=== PATIENT | female | born 1970 | race Caucasian/White ===

== ENCOUNTER 2019-12-23 14:30 | Outpatient (REF) | payer OTHER, SELFPAY ==
[2019-12-23 14:58] LABS: MANUAL DIFF FLAG NO
[2019-12-23 15:02] LABS: Basophils Absolute Auto 0.1 X10*3/uL (0.0-0.2); Basophils Percent Auto 0.7 % (0-2); Eosinophils Absolute Auto 0.1 X10*3/uL (0.0-0.4); Eosinophils Percent Auto 1.2 % (0-4); Hematocrit 45.4 % (37-47); Hemoglobin 15.3 g/dl (12.0-16.0); Imm Gran Abs Auto 0.02 X10*3/uL (0.00-0.03); Imm Gran Pct Auto 0.2 % (0.0-0.4); Lymphocytes Absolute Auto 2.6 X10*3/uL (1.2-4.9); Lymphocytes Percent Auto 30.7 % (20-40); Mean Corpuscular HGB Conc 33.7 g/dl (31.0-35.0); Mean Corpuscular Volume 91.9 fL (80-98); Mean Platelet Volume 10.8 fL (9.4-12.3); Monocytes Absolute Auto 0.5 X10*3/uL (0.1-1.2); Monocytes Percent Auto 6.1 % (2-11); Neutrophils Absolute Auto 5.2 X10*3/uL (2.0-8.3); Neutrophils Percent Auto 61.1 % (45-73); Platelet Count 200 X10*3/uL (160-400); Red Blood Count 4.94 X10*6/uL (4.20-5.50); Red Cell Distribution Width 13.7 % (11.0-16.0); White Blood Count 8.6 X10*3/uL (4.8-10.8)
[2019-12-23 15:28] LABS: Alanine Aminotransferase 17 U/L (0-31); Albumin Level 4.1 g/dL (3.5-5.0); Alkaline Phosphatase 68 U/L (39-117); Anion Gap 12 (12-20); Aspartate Amino Transferase 15 U/L (5-31); Bilirubin Total 0.3 mg/dL (0.0-1.0); Blood Urea Nitrogen 12 mg/dL (9-16); Calcium 8.9 mg/dL (8.4-10.2); Carbon Dioxide 25 mmol/L (22-29); Chloride 104 mmol/L (96-108); Estimated Glomerular Filt Rate > 60; Glucose Random 93 mg/dL (60-115); Potassium 4.4 mmol/l (3.3-5.1); Sodium 137 mmol/L (135-145); Total Protein 6.7 g/dL (6.5-8.0)
[2019-12-23 15:50] LABS: Free T4 (Free Thyroxine) 0.88 ng/dL (0.71-1.85); Thyroid Stimulating Hormone 0.65 uIU/mL (0.32-4.0); Vitamin D 25-OH Total 25.1 ng/mL (>30)
[2019-12-23 16:00] LABS: Folate 12.4 ng/mL (> or = 4.0); Vitamin B12 476 pg/mL (200-900)
--- NOTE | 2019-12-23 16:04 | HO.PHPPROGNO ---
Subjective Subjective Date of Service: 12/23/19 Reason For Visit: F33.2 Interim History: I started Wellbutrin. Reports she initiated Wellbutrin [address] Hoff,. She has returned to Abilify 5 mg daily for over a week now and is coping with identity theft via unemployment and a disability provider change to [employer] with required paperwork which we will initiate. Reports some improvement. Medication Compliance: Yes Side effects from medications: No Attending Groups: Yes Review of Systems Psychiatric: Reports anxiety, Reports depression, Reports difficulty concentrating, Reports hopelessness and Reports anhedonia Mental Status Exam Mental Status Exam Patient Orientation: Person, Place, Time and Situation Level of Consciousness: Awake, Appropriate and Alert Patient Behavior: Cooperative, Passive, Anxious and Fatigued Mood Description: Withdrawn, Depressed, Anxious and Apprehensive Affect Description: Flat Patient Cognition Impaired: No Ability to Follow Directions: Excellent Speech Pattern: Clear, Appropriate, Spontaneous Speech and Soft-Spoken Memory Description: Intact Hallucinations: None Delusions: Not Present Thought Process: Intact, Distracted and Rumination Thought Content: positive for Intact, positive for [place], positive for Circumstantial and positive for Suicidal Ideation (passive at times) Depressive Symptoms: Increased Anxiety, Loss of Int. in Activity, Hopelessness, Unhappiness, Low Self Esteem and Loss of Energy Judgement: Good Diagnostics Labs Results: 12/23/19 14:43 12/23/19 14:43 Labs: Laboratory Results - last 48 hr 12/23/19 12/23/19 12/23/19 14:43 14:43 14:43 WBC 8.6 RBC 4.94 Hgb 15.3 Hct 45.4 MCV 91.9 MCH 31.0 MCHC 33.7 RDW 13.7 Plt Count 200 MPV 10.8 Immature Gran % (Auto) 0.2 Neut % (Auto) 61.1 Lymph % (Auto) 30.7 Steele % (Auto) 6.1 Eos % (Auto) 1.2 Baso % (Auto) 0.7 Lymph # (Auto) 2.6 Steele # (Auto) 0.5 Eos # (Auto) 0.1 Baso # (Auto) 0.1 Abs Immat Gran (auto) 0.02 Absolute Neuts (auto) 5.2 Absolute Nucleated RBC 0.000 Nucleated RBC % (auto) 0.0 Sodium 137 Potassium 4.4 Chloride 104 Carbon Dioxide 25 Anion Gap 12 BUN 12 Creatinine 0.82 Estim Creat Clear Calc Not Reportable Estimated GFR > 60 Random Glucose 93 Calcium 8.9 Total Bilirubin 0.3 AST 15 ALT 17 Alkaline Phosphatase 68 Total Protein 6.7 Albumin 4.1 Vitamin B12 476 25-OH Vitamin D Total 25.1 Folate 12.4 TSH 0.65 Free T4 0.88 Assessment & Plan Patient educated on: medication risk/benefits and therapeutic strategies Guardian/Caregiver educated on: other ([facility] paperwork completed.) Informed Consent: understands and further education needed Reason for contiued partial hosp. stay Substantial Risk for: harm to self, inability to function and rapid decompensation Certification I certify that partial hospital treatment is medically necessary due to the symptoms and problems resulting from the patient's mental illness and the failure to treat the patient at the partial hospital level of care would likely result in the patient requiring inpatient psychiatric care which could not be prevented at a less intensive level of care. Greater than 50% of the session was spent on counseling and/or coordination of care Discharge Plan Discharge Primary Care Provider: Mason Watkins Patient Disposition: Home, Self-Care Discharge Date/Time: 12/23/19 14:31 Discharge Medications: No Action clonazepam 0.5 mg Tablet 0.5 mg PO BID PRN (Reason: Anxiety) RF: 0 duloxetine 60 mg Capsule,Delayed Release(Dr/Ec) 120 mg PO BEDTIME RF: 0 albuterol sulfate [ProAir HFA] 90 mcg/actuation Hfa Aerosol Inhaler 2 puff INHALATION Q4H PRN (Reason: Shortness Of Breath) RF: 0 aripiprazole 5 mg Tablet 5 mg PO BEDTIME Qty: 30 RF: 0
== END 2019-12-23 14:31 | disposition home or self-care (01) ==
LOC: HO.LAB 14:30
PROVIDERS: PCP Family Medicine; Visit Provider Clinical Nurse Specialist Psychiatric/Mental Health, Adult
DX: F33.2 Major depressive disorder, recurrent severe without psychotic features (principal)
CPT/HCPCS: 36415; 80050; 80053; 82306; 82607; 82746; 84439; 84443; 85025; 99213

== ENCOUNTER 2019-12-31 10:15 | Outpatient (RCR) | payer OTHER, SELFPAY ==
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
--- NOTE | 2019-12-10 13:22 | PC.NURSE ---
Patient is a 49 year old female who self referred to PHP d/t increasing depression with passive SI, increased anxiety, and grief from recent passing of her aunt. Pt feeling overwhelmed with the pandemic and is unable to work d/t symptoms. Pt works at [employer]. Regarding work patient stated, I just can't do it . Feeling hopeless and helpless. Stated she is attending the program as she has, uncontrollable depression . Patient is alert and oriented x4. Calm and cooperative. Soft spoken. Presents with depressed mood. Denied SI at present. Pt has the crisis number if needed. Gave verbal permission to email her a copy of her safety plan. Will email when [facility] email is reactivated. Patient reports picking scabs and is unable to stop. Reports she has 2 scabs on arm and 1 scab on neck. Stated they are painful. Does not think they are infected however pt does have a doctors appointment in Feb 2019 and would like staff's help to get an appointment sooner to f/u. Pt reports her gait has been off as she feels, woozy at times d/t anxiety and panic. Encouraged pt to increase her fluid intake. Pt denied substance use with the exception of occasional drink last time a few months ago. Pt's medications reconciled with patients pharmacy. Pt reports she is taking as prescribed. Pt reports she is on Amitriptyline however pharmacist stated pt last picked this up in August for one month supply ordered by Nalini. Pt stated she only fills her prescriptions at the [facility] I called. Pt also filled, Per pharmacist, Aripiprazole 2 mg daily on 12/01/19 at 1615 however patient does not recall picking this up and is not taking this. According to patient and pharmacist she did waste picker Aripiprazole 5 mg Daily on 09/17/19 for a 3 month supply which pt reports she is taking currently at . Yumiko Elizondo APRN is aware. In addition, pt reports drinking 3 pots of coffee daily. Pt thinks this could be contributing to panic attacks and when she has sleep issues at times. Pt stated her would like her to cut down as well. Patient is aware that she should not stop intake all at once d/t caffeine withdrawal and should reduce slowly. Will email patient information/tips on how to reduce caffeine intake. Completed assessment via telephone d/t telehealth program platform.
[2019-12-10 13:59] VITALS: BMI 24.0
--- NOTE | 2019-12-13 14:29 | PC.NURSE ---
Case opened in treatment team
--- NOTE | 2019-12-15 14:41 | P.PNPSP_ITS ---
Subjective Subjective Date of Service: 12/15/19 Reason For Visit: Depression Interim History: Today is a bad day. I don't feel well. Pt reports headache for the past 4-5 days, today with nausea. Denies fever but will assess. Denies other family members are ill. Last week, with the assistance of Dorota Donovan RN, pt learned that she had not been taking the accurate dose of Abilify prescribed, 5 mg, but was given 2 mg by the pharmacy. She has adjusted her meds today and has initiated the 5 mg dosing. We will allow this dosing to establish before increasing as we planned upon admission. Pt reports sleep interruption also, with improvement from last week when she had XENA 1-2 am. Currently sleeping ~4 hours per night, TOBY ~4:30a.m. believes this is due to anxiety. Medication Compliance: Yes (re-introducing Abilify 5 mg from 2 mg by error) Side effects from medications: No (?JACINTO) Attending Groups: Yes Review of Systems Constitutional: Reports difficulty sleeping, Reports headache(s) and Reports other (nausea today) Reports headache(s) Reports headache(s) Mental Status Exam Mental Status Exam Patient Orientation: Person, Place, Time and Situation Level of Consciousness: Awake, Appropriate and Sedated Patient Behavior: Appropriate and Cooperative Mood Description: Withdrawn, Depressed, Anxious and Flat Affect Description: Flat Patient Cognition Impaired: No Ability to Follow Directions: Excellent Speech Pattern: Clear, Impoverished, Appropriate, Spontaneous Speech and Soft- Spoken Memory Description: Intact Hallucinations: None Delusions: Not Present Thought Process: Intact Thought Content: positive for Perseveration Depressive Symptoms: Increased Anxiety, Insomnia, Difficulty Sleeping, Loss of Int. in Activity, Hopelessness, Unhappiness and Loss of Energy Judgement: Good Diagnostics Vital Signs (24Hr): Body Mass Index 24.0 Assessment & Plan Patient educated on: medication risk/benefits, therapeutic strategies and medical condition Informed Consent: understands and further education needed Reason for contiued partial hosp. stay Substantial Risk for: harm to self, inability to function and rapid decompensation Certification I certify that partial hospital treatment is medically necessary due to the symptoms and problems resulting from the patient's mental illness and the failure to treat the patient at the partial hospital level of care would likely result in the patient requiring inpatient psychiatric care which could not be prevented at a less intensive level of care. Greater than 50% of the session was spent on counseling and/or coordination of care Discharge Plan Discharge Attending provider: Vidal Carmichael Additional Instructions: Continue current regime. Will contact pt on 12/15 to re-eval sleep, headache, medical sx. ? In need of titration of Abilify to assist in symptom mgt. Medications: Continued aripiprazole 5 mg Tablet 5 mg PO BEDTIME Qty: 30 RF: 0 No Action clonazepam 0.5 mg Tablet 0.5 mg PO BID PRN (Reason: Anxiety) RF: 0 duloxetine 60 mg Capsule,Delayed Release(Dr/Ec) 120 mg PO BEDTIME RF: 0 albuterol sulfate [ProAir HFA] 90 mcg/actuation Hfa Aerosol Inhaler 2 puff INHALATION Q4H PRN (Reason: Shortness Of Breath) RF: 0
--- NOTE | 2019-12-31 15:00 | P.PNPSP_ITS ---
Subjective Subjective Date of Service: 12/31/19 Reason For Visit: Depression Interim History: Ale reports she wants to return to work on 01/09/30. She is unsure if she is ready but wants to try to complete this. She plans discharge from [facility] today, will meet with Dr. Francisco Javier Salas on 01/05/20 for review. Wellbutrin she initiated in OP has been helpful thus far she reports Medication Compliance: Yes Side effects from medications: No Attending Groups: Yes Review of Systems Review of Systems Yes all other systems are reviewed and are negative Constitutional: Reports headache(s) Reports headache(s) Reports headache(s) Psychiatric: Reports anxiety and Reports depression Mental Status Exam Mental Status Exam Patient Orientation: Person, Place, Time and Situation Level of Consciousness: Awake, Appropriate and Alert Patient Behavior: Appropriate and Passive Mood Description: Depressed Affect Description: Flat Patient Cognition Impaired: No Ability to Follow Directions: Excellent Speech Pattern: Clear, Appropriate and Soft-Spoken Memory Description: Intact Hallucinations: None Delusions: Not Present Thought Process: Intact Thought Content: positive for Intact Depressive Symptoms: Hopelessness and Unhappiness Judgement: Good Diagnostics Vital Signs (24Hr): Body Mass Index 24.0 Assessment & Plan Patient educated on: therapeutic strategies Informed Consent: understands Reason for contiued partial hosp. stay Substantial Risk for: stable for discharge Certification I certify that partial hospital treatment is medically necessary due to the symptoms and problems resulting from the patient's mental illness and the failure to treat the patient at the partial hospital level of care would likely result in the patient requiring inpatient psychiatric care which could not be prevented at a less intensive level of care. Greater than 50% of the session was spent on counseling and/or coordination of care Discharge Plan Discharge Attending provider: Vidal Carmichael Additional Instructions: Continue current regime. 12/31/19: Continue current regime. Follow up appt with Dr. Francisco Javier Salas on 01/05/20. Medications: Continued aripiprazole 5 mg Tablet 5 mg PO BEDTIME Qty: 30 RF: 0 No Action clonazepam 0.5 mg Tablet 0.5 mg PO BID PRN (Reason: Anxiety) RF: 0 duloxetine 60 mg Capsule,Delayed Release(Dr/Ec) 120 mg PO BEDTIME RF: 0 albuterol sulfate [ProAir HFA] 90 mcg/actuation Hfa Aerosol Inhaler 2 puff INHALATION Q4H PRN (Reason: Shortness Of Breath) RF: 0 Wellbutrin XL 150 mg 150 mg PO DAILY RF: 0
== END 2019-12-31 23:55 | disposition home or self-care (01) ==
LOC: HO.PHPA 10:15
PROVIDERS: Visit Provider Psychiatry & Neurology Psychiatry
DX: F33.2 Major depressive disorder, recurrent severe without psychotic features (principal); F43.10 Post-traumatic stress disorder, unspecified; Z79.899 Other long term (current) drug therapy
CPT/HCPCS: 90792; 90853; 99213

== ENCOUNTER 2020-01-19 17:00 | Outpatient (RCR) | payer OTHER, SELFPAY | END 2020-01-20 23:55 | disposition home or self-care (01) | LOC: HO.PAOS 17:00 | PROVIDERS: Visit Provider Counselor Mental Health | DX: F43.10 Post-traumatic stress disorder, unspecified (principal); F40.00 Agoraphobia, unspecified; F33.2 Major depressive disorder, recurrent severe without psychotic features | CPT/HCPCS: 90834 ==

== ENCOUNTER 2020-06-02 08:15 | Outpatient (RCR) | payer OTHER, SELFPAY ==
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
[2020-05-09 13:47] VITALS: BMI 27.8
--- NOTE | 2020-05-10 08:41 | PC.ADMIT ---
Patient referred to PHP program d/t increase in depression with passive SI, increase in anxiety, and increase in PTSD sxs. Patient is unable to work d/t symptoms and has taken a GIA from work as a result. Patient has completed the PHP in the past and has found it helpful. Patient presents with depressed mood and anxious affect. Denied current SI. Reports having passive SI thinking what is the purpose of being here. Reports her children are her protective factor. Patient gave verbal permission to email her a copy of her safety plan. Medications reconciled with patient and patient's pharmacy. Patient reports taking medications as prescribed. Patient reports experiencing dizziness when having a panic attack. Educated patient on hyperventilation and calm breathing to reduce that side effect. Will email patient a copy of instructions on calm breathing to reinforce education.
--- NOTE | 2020-05-12 09:37 | PC.NURSE ---
Patient reports she accidentally took her bedtime medications this morning and just realized this. She stated she uses a pill organizer but somehow took the night time does this morning. She stated she has never done this before. Reports taking Abilify 10 mg, Klonopin 0.5 mg, and Duloxetine 120 mg. Stated she is feeling a little tired, anxious, and has a headache. Patient aware not to take these medications again tonight. Recommended that she not to drive or do anything that requires her to be alert. Patient is holding morning Wellbutrin dose. Reviewed aforementioned information with Dr Palma. No new orders. Dr Palma is scheduled to see patient at 12:30 today. Patient is aware.
--- NOTE | 2020-05-12 12:44 | P.PNPSP_ITS ---
Subjective Subjective Date of Service: 05/12/20 Reason For Visit: depression Interim History: PATIENT NO SHOWED TO THE VIDEO CONFERENCE Diagnostics Vital Signs (24Hr): Body Mass Index 27.8 Assessment & Plan Assessment & Plan (1) Major depressive disorder, recurrent episode with melancholic features: Status: Acute Code(s): F33.9 - Major depressive disorder, recurrent, unspecified Assessment and Plan: PATIENT NO SHOWED TO THE VIDEO CONFERENCE Certification I certify that partial hospital treatment is medically necessary due to the symptoms and problems resulting from the patient's mental illness and the destini lure to treat the patient at the partial hospital level of care would likely result in the patient requiring inpatient psychiatric care which could not be prevented at a less intensive level of care. Greater than 50% of the session was spent on counseling and/or coordination of care Discharge Plan Discharge Attending provider: Vidal Carmichael Medications: New bupropion HCl [Wellbutrin XL] 300 mg tablet extended release 24 hr 300 mg PO QAM Qty: 30 RF: 0 Discontinued Wellbutrin XL 150 mg 150 mg PO DAILY RF: 0 No Action duloxetine 60 mg Capsule,Delayed Release(Dr/Ec) 120 mg PO BEDTIME RF: 0 albuterol sulfate [ProAir HFA] 90 mcg/actuation Hfa Aerosol Inhaler 2 puff INHALATION Q4H PRN (Reason: Shortness Of Breath) RF: 0 clonazepam [Klonopin] 0.5 mg Tablet 0.5 mg PO TID PRN (Reason: Anxiety) RF: 0 aripiprazole 10 mg Tablet 10 mg PO BEDTIME RF: 0
--- NOTE | 2020-05-12 14:13 | HO.PHPPROGNO ---
Subjective Subjective Date of Service: 05/12/20 Reason For Visit: depression Interim History: The patient called and reported that she took by mistake her HS meds today AM and she was oversedated. We talk over the phone and explained her that she could be a little sedated but she can restart her medications as usual, starting today. Medication Compliance: Yes (see HPI) Review of Systems Review of Systems Yes all other systems are reviewed and are negative Mental Status Exam Mental Status Exam Patient Appearance: Well Grooomed Patient Orientation: Person, Place and Time Level of Consciousness: Sedated Patient Behavior: Appropriate Mood Description: Calm Affect Description: Calm Patient Cognition Impaired: No Ability to Follow Directions: Good Speech Pattern: Clear Memory Description: Intact Hallucinations: None Delusions: Not Present Thought Content: positive for Intact Judgement: Fair Diagnostics Vital Signs (24Hr): Body Mass Index 27.8 Assessment & Plan Assessment & Plan (1) Major depressive disorder, recurrent episode with melancholic features: Status: Acute Code(s): F33.9 - Major depressive disorder, recurrent, unspecified Assessment and Plan: Keep same treatment Certification I certify that partial hospital treatment is medically necessary due to the symptoms and problems resulting from the patient's mental illness and the failure to treat the patient at the partial hospital level of care would likely result in the patient requiring inpatient psychiatric care which could not be prevented at a less intensive level of care. Greater than 50% of the session was spent on counseling and/or coordination of care Discharge Plan Discharge Attending provider: Vidal Carmichael Medications: New bupropion HCl [Wellbutrin XL] 300 mg tablet extended release 24 hr 300 mg PO QAM Qty: 30 RF: 0 Discontinued Wellbutrin XL 150 mg 150 mg PO DAILY RF: 0 No Action duloxetine 60 mg Capsule,Delayed Release(Dr/Ec) 120 mg PO BEDTIME RF: 0 albuterol sulfate [ProAir HFA] 90 mcg/actuation Hfa Aerosol Inhaler 2 puff INHALATION Q4H PRN (Reason: Shortness Of Breath) RF: 0 clonazepam [Klonopin] 0.5 mg Tablet 0.5 mg PO TID PRN (Reason: Anxiety) RF: 0 aripiprazole 10 mg Tablet 10 mg PO BEDTIME RF: 0 Telehealth Telehealth Location of provider rendering services: practice address Location of patient: address on file Patient Identification confirmed using: Name, : Yes Telehealth method: voice only Patient verbally consented to treatment: Yes Patient verbally consented to billing insurance company: Yes Patient informed of any privacy concerns related to visit: Yes Time spent with patient (mins): 15
--- NOTE | 2020-05-15 14:18 | HO.PHPPROGNO ---
Subjective Subjective Date of Service: 05/15/20 Reason For Visit: depression Interim History: The patient reported that she is still tired, she slept only 6 hours last night. She reported some improvement of dysphoria since Abilify was titreated up to 10 mg but still some symptoms Medication Compliance: Yes Side effects from medications: No Attending Groups: Yes Review of Systems Review of Systems Yes all other systems are reviewed and are negative Mental Status Exam Mental Status Exam Patient Appearance: Well Grooomed and Appropriate Patient Orientation: Person, Place, Time and Situation Level of Consciousness: Awake and Appropriate Patient Behavior: Appropriate and Cooperative Mood Description: Calm and Withdrawn Affect Description: Constricted Patient Cognition Impaired: No Ability to Follow Directions: Good Speech Pattern: Clear Memory Description: Intact Hallucinations: None Delusions: Not Present Thought Process: Intact and Goal Oriented Thought Content: positive for Intact Depressive Symptoms: Insomnia Judgement: Fair Diagnostics Vital Signs (24Hr): Body Mass Index 27.8 Assessment & Plan Assessment & Plan (1) Post traumatic stress disorder: Status: Acute Code(s): F43.10 - Post-traumatic stress disorder, unspecified Assessment and Plan: Keep same treatment (2) Major depressive disorder, recurrent episode with melancholic features: Status: Acute Code(s): F33.9 - Major depressive disorder, recurrent, unspecified Assessment and Plan: Keep same tratment, next step would be to increase Abilify up to 15 mg as a mood stabilizer Certification I certify that partial hospital treatment is medically necessary due to the symptoms and problems resulting from the patient's mental illness and the failure to treat the patient at the partial hospital level of care would likely result in the patient requiring inpatient psychiatric care which could not be prevented at a less intensive level of care. Greater than 50% of the session was spent on counseling and/or coordination of care Discharge Plan Discharge Attending provider: Vidal Carmichael Medications: New bupropion HCl [Wellbutrin XL] 300 mg tablet extended release 24 hr 300 mg PO QAM Qty: 30 RF: 0 Discontinued Wellbutrin XL 150 mg 150 mg PO DAILY RF: 0 No Action duloxetine 60 mg Capsule,Delayed Release(Dr/Ec) 120 mg PO BEDTIME RF: 0 albuterol sulfate [ProAir HFA] 90 mcg/actuation Hfa Aerosol Inhaler 2 puff INHALATION Q4H PRN (Reason: Shortness Of Breath) RF: 0 clonazepam [Klonopin] 0.5 mg Tablet 0.5 mg PO TID PRN (Reason: Anxiety) RF: 0 aripiprazole 10 mg Tablet 10 mg PO BEDTIME RF: 0 Telehealth Telehealth Location of provider rendering services: practice address Location of patient: address on file Patient Identification confirmed using: Name, : Yes Telehealth method: video Patient verbally consented to treatment: Yes Patient verbally consented to billing insurance company: Yes Patient informed of any privacy concerns related to visit: Yes Time spent with patient (mins): 15
--- NOTE | 2020-05-15 15:35 | PC.NURSE ---
I called and left a message for pt. I asked her to pls call back re: how treatment is going, schedule, and aftercare plans.
--- NOTE | 2020-05-17 13:54 | PC.NURSE ---
I received a message back from pt and called her. I left another message asking to call talk about schedule and treatment, etc.
--- NOTE | 2020-05-17 14:45 | PC.NURSE ---
I called and spoke to pt. She reports she is doing well in the program despite severe PTSD symptoms, and shared that she was able to use a coping skill last night to pull her out of a flashback. We discussed aftercare. Pt is returning to work after PHP. She is considering a weekly DBT group, but it would have to fall outside her work hours (8-4:30 daily), as she says they are not flexible. Her tentative discharge date is Friday.
--- NOTE | 2020-05-19 15:09 | PC.NURSE ---
I sent Maci Peraza at [facility] (pt's therapist) an email updating her about pt's progress in PHP and discharge date.
--- NOTE | 2020-05-23 13:04 | HO.PHPPROGNO ---
Subjective Subjective Date of Service: 05/23/20 Reason For Visit: depression Interim History: The patient is still depressed but better since before. We discussed options since it is 2 weeks since we increased Wellbutrin. She reported that she had some headaches since we increased Wellbutrin 2 weeks ago. She agreed to start using Elavil as an antidepressant instead of medication for chronic pain. Medication Compliance: Yes Side effects from medications: Yes (mild headache with Wellbutrin XL 300 mg) Attending Groups: Yes Review of Systems Review of Systems Yes all other systems are reviewed and are negative Mental Status Exam Mental Status Exam Patient Appearance: Well Grooomed Patient Orientation: Person, Place, Time and Situation Level of Consciousness: Awake and Appropriate Patient Behavior: Appropriate Mood Description: Calm Affect Description: Constricted Patient Cognition Impaired: No Ability to Follow Directions: Good Speech Pattern: Clear Memory Description: Intact Hallucinations: None Delusions: Not Present Thought Process: Goal Oriented Thought Content: positive for Intact Depressive Symptoms: Insomnia and Crying Spells Judgement: Fair Diagnostics Vital Signs (24Hr): Body Mass Index 27.8 Assessment & Plan Assessment & Plan (1) Major depressive disorder, recurrent episode with melancholic features: Status: Acute Code(s): F33.9 - Major depressive disorder, recurrent, unspecified Assessment and Plan: The patient had improved slightly on her depression but she still has residual symptoms. She had some side effects with the increase of Wellbutrin so she agreed to increase Elavil up to 50 mg po qhs to target depression. Plan: 1. Increase Elavil up to 50 mg po qhs. 2. Rest the same. 3. Next visit Elavil levels. Certification I certify that partial hospital treatment is medically necessary due to the symptoms and problems resulting from the patient's mental illness and the failure to treat the patient at the partial hospital level of care would likely result in the patient requiring inpatient psychiatric care which could not be prevented at a less intensive level of care. Greater than 50% of the session was spent on counseling and/or coordination of care Discharge Plan Discharge Attending provider: Vidal Carmicahel Medications: New bupropion HCl [Wellbutrin XL] 300 mg tablet extended release 24 hr 300 mg PO QAM Qty: 30 RF: 0 amitriptyline 50 mg tablet 50 mg PO BEDTIME Qty: 14 RF: 0 Discontinued Wellbutrin XL 150 mg 150 mg PO DAILY RF: 0 amitriptyline 25 mg Tablet 25 mg PO BEDTIME RF: 0 No Action duloxetine 60 mg Capsule,Delayed Release(Dr/Ec) 120 mg PO BEDTIME RF: 0 albuterol sulfate [ProAir HFA] 90 mcg/actuation Hfa Aerosol Inhaler 2 puff INHALATION Q4H PRN (Reason: Shortness Of Breath) RF: 0 clonazepam [Klonopin] 0.5 mg Tablet 0.5 mg PO TID PRN (Reason: Anxiety) RF: 0 aripiprazole 10 mg Tablet 10 mg PO BEDTIME RF: 0 Telehealth Telehealth Location of provider rendering services: practice address Location of patient: address on file Patient Identification confirmed using: Name, : No Telehealth method: video Patient verbally consented to treatment: Yes Patient verbally consented to billing insurance company: Yes Patient informed of any privacy concerns related to visit: No Time spent with patient (mins): 15
--- NOTE | 2020-06-02 09:24 | PC.NURSE ---
Went over patient's medication list. Medication education provided. Patient appears to understand her medications and is taking as prescribed.
--- NOTE | 2020-06-02 13:59 | P.PNPSP_ITS ---
Subjective Subjective Date of Service: 06/02/20 Reason For Visit: depression Interim History: The patient reported mild improvement of her mood with the last medication change. So far, she has some residual symptoms and she requested FMLA for 2 weeks. Paperwork was done. Medication Compliance: Yes Side effects from medications: Yes (mild headache with Wellbutrin XL) Attending Groups: Yes Review of Systems Review of Systems Yes all other systems are reviewed and are negative Mental Status Exam Mental Status Exam Patient Appearance: Well Grooomed Patient Orientation: Person, Place, Time and Situation Level of Consciousness: Awake Patient Behavior: Cooperative and Good Eye Contact Mood Description: Calm and Withdrawn Affect Description: Constricted Patient Cognition Impaired: No Ability to Follow Directions: Good Speech Pattern: Clear Memory Description: Intact Hallucinations: None Delusions: Not Present Thought Process: Goal Oriented Thought Content: positive for Intact Depressive Symptoms: Hopelessness and Unhappiness Judgement: Fair Diagnostics Vital Signs (24Hr): Body Mass Index 27.8 Assessment & Plan Assessment & Plan (1) Major depressive disorder, recurrent episode with melancholic features: Status: Acute Code(s): F33.9 - Major depressive disorder, recurrent, unspecified Assessment and Plan: Plan: Keep same treatment. [facility] as an outpatient. Certification I certify that partial hospital treatment is medically necessary due to the symptoms and problems resulting from the patient's mental illness and the failure to treat the patient at the partial hospital level of care would likely result in the patient requiring inpatient psychiatric care which could not be prevented at a less intensive level of care. Greater than 50% of the session was spent on counseling and/or coordination of care Discharge Plan Discharge Attending provider: Vidal Carmichael Medications: New bupropion HCl [Wellbutrin XL] 300 mg tablet extended release 24 hr 300 mg PO QAM Qty: 30 RF: 0 amitriptyline 50 mg tablet 50 mg PO BEDTIME Qty: 14 RF: 0 Discontinued Wellbutrin XL 150 mg 150 mg PO DAILY RF: 0 amitriptyline 25 mg Tablet 25 mg PO BEDTIME RF: 0 No Action duloxetine 60 mg Capsule,Delayed Release(Dr/Ec) 120 mg PO BEDTIME RF: 0 albuterol sulfate [ProAir HFA] 90 mcg/actuation Hfa Aerosol Inhaler 2 puff INHALATION Q4H PRN (Reason: Shortness Of Breath) RF: 0 clonazepam [Klonopin] 0.5 mg Tablet 0.5 mg PO TID PRN (Reason: Anxiety) RF: 0 aripiprazole 10 mg Tablet 10 mg PO BEDTIME RF: 0 Telehealth Telehealth Location of provider rendering services: practice address Location of patient: address on file Patient Identification confirmed using: Name, : Yes Telehealth method: video Patient verbally consented to treatment: Yes Patient verbally consented to billing insurance company: Yes Patient informed of any privacy concerns related to visit: No Time spent with patient (mins): 15
--- NOTE | 2020-06-02 14:56 | PC.NURSE ---
I called and left a message for pt's therapist, ARTURO Thompson at [facility]. I informed her of pt's successful discharge from [facility] today.
== END 2020-06-05 09:15 | disposition home or self-care (01) ==
LOC: HO.PHPA 08:15
PROVIDERS: Visit Provider Psychiatry & Neurology Psychiatry
DX: F33.9 Major depressive disorder, recurrent, unspecified (principal); F43.10 Post-traumatic stress disorder, unspecified; Z79.899 Other long term (current) drug therapy
CPT/HCPCS: 90791; 90792; 90853; 99211

== ENCOUNTER 2020-06-24 15:41 | Inpatient (IN) | payer OTHER, SELFPAY ==
[2020-06-24 15:46] VITALS: BP 134/92; PULSE 92; RESP 18; TEMP 36.6; O2SAT 98; BMI 27.8
--- NOTE | 2020-06-24 16:48 | PC.NURSE ---
patient cooperative with changeover from ED/waiting room area, patient presents with increasing anxiety and history of PTSD, patient currently employed at [employer] and has lost 7 patients D/t covid, one child had covid, currently reports poor sleep patient had a desire to return to a [facility] but Josue /director of program asked client to come to hospital for an evaluation. patient has supportive . patient denies recent drug/ETOH use/dependency. contracts for safety, oriented in all spheres, denies hallucinations/delusions. awaiting care team response. patient in room now with visiting dtr 20 yr old Magui
--- NOTE | 2020-06-24 17:10 | ED_ITS ---
HPI - Psych General Chief Complaint: Psychiatric Symptoms Stated Complaint: crisis Time Seen by Provider: 06/24/20 17:10 Source: patient and family Mode of arrival: ambulatory Limitations: no limitations History of Present Illness HPI Narrative: 49-year-old female with past medical history of PTSD, anxiety and depression presents from the community for request of Dr. Francisco Javier augustin MD complaint: anxiety Onset (ago): unknown Duration: intermittent History of same: Yes Relieving factors: medication and therapy Context: significant life stressor Associated psychiatric symptoms: depression Associated symptoms: denies other symptoms Treatments prior to arrival: none Related Data Home Medications Medication Instructions Recorded Confirmed albuterol sulfate [ProAir HFA] 2 puff INHALATION Q4H PRN 12/10/19 06/24/20 duloxetine 120 mg PO BEDTIME 12/10/19 06/24/20 aripiprazole 10 mg PO BEDTIME 05/09/20 06/24/20 clonazepam [Klonopin] 0.5 mg PO TID PRN 05/09/20 06/24/20 Previous Rx's Medication Instructions Recorded bupropion HCl [Wellbutrin XL] 300 mg PO QAM #30 tab 05/09/20 amitriptyline 50 mg PO BEDTIME #14 tab 05/23/20 Allergies Allergy/AdvReac Type Severity Reaction Status Date / Time bee pollen [BEE STINGS] Allergy Severe PAIN AND Unverified 10/28/19 16:06 EDEMA PER PATIENT HX OF ANAPHYLAXIS acetaminophen [From PERCOCET] Allergy Intermediate Itching Unverified 10/28/19 16:06 latex [LATEX] Allergy Intermediate RASH Unverified 10/28/19 16:06 oxycodone [From PERCOCET] Allergy Intermediate Itching Unverified 10/28/19 16:06 Penicillins [PENICILLINS] Allergy Intermediate HIVES Unverified 10/28/19 16:06 Review of Systems Review of Systems: Constitutional: No Fever, No Chills ENT/Mouth: No Ear Pain, No Nasal Congestion, No sore throat Eyes: No Eye Pain, No Swelling, No Redness Cardiovascular: No Chest Pain, No SOB Respiratory: No Cough, No Sputum, No Dyspnea Gastrointestinal: No Nausea, No Vomiting, No Diarrhea, No Hematochezia, No Melena Genitourinary: No Dysuria, No Urinary Frequency, No Hematuria Musculoskeletal: No Myalgias Skin: No Skin Lesions, No rash Neuro: No Weakness, No Numbness, No Paresthesias, No Dizziness, No Headache Psych: positive Anxiety, no Depression, no SI/HI Heme/Lymph: No Lymphadenopathy Endocrine: No Polyuria, No Polydipsia Yes all other systems are reviewed and are negative [facility] Past Medical History Attestation statement: The following information was validated with the patient. Source: old records reviewed Medical History Asthma Carpal tunnel syndrome of left wrist PID (pelvic inflammatory disease) Tinnitus Surgical History History of abdominoplasty History of breast mammoplasty Hx of cholecystectomy Hx of tubal ligation Social History Social History Household Members: Family Alcohol intake: unknown Smoking Status: Unknown if ever smoked Smoked in Last 30 Days: No Use of substances other than those prescribed or required for medical reasons: Yes Substance Use Type: Marijuana Substance Use Type Other:: to help sleep Substance Use Frequency Other:: recent experimentation Last Used Substance: Days (ago) Any prior treatment program specific to substance use: No Advance Directives: No Advance Directives Information Provided: No Patient : No Physical Exam Vital Signs: Vital Signs: Last Vital Signs Temp 97.4 F 06/25/20 00:15 Pulse 80 06/25/20 00:15 Resp 16 06/25/20 00:15 BP 114/76 06/25/20 00:15 Pulse Ox 92 06/25/20 00:15 Body Mass Index 27.8 Appearance: Alert. Oriented X3. No acute distress. Eyes: Pupils equal, round and reactive to light. ENT: Pharynx normal. Neck: Normal inspection. Neck supple. CVS: Normal heart rate and rhythm. Pulses normal. Respiratory: No respiratory distress. Breath sounds normal. Abdomen: Soft and nontender. Skin: Skin warm and dry. Normal skin color. Normal skin turgor. Extremities: No lower extremity edema. Neuro: No motor deficit. No sensory deficit. Course Course Course Narrative: 49-year-old female with posttraumatic stress disorder, anxiety, and depression presents from the Community per request of her psychi atrist. Patient states that she is not suicidal, homicidal, and is not experiencing any auditory or visual hallucinations. She states that she does have significant anxiety. States that the stresses of COVID and her work situation are weighing heavy on her. She is planning on giving her 2 week notice in the next day or so. She is a patient of the partial outpatient program, and was seen by another provider at the partial outpatient program who increased her medication dosages. She noticed this week that when her medications were refilled they were not refilled at the proper dosage by her primary psychiatrist. She also feels that she is beginning menopause. Patient is alert oriented x4, answering questions politely and appropriately, and appears to have appropriate levels of anxiety for the situation that she is in at this time. She is well put together, speaking calmly and in complete sentences. She is with her daughter who is at bedside at this time. Plan of care is for patient to be seen by N-care team in the morning. Patient is voluntary and she does understand that she is free to leave at any time as she is not homicidal, suicidal, and is not a danger to herself or others. 12:35 a.m. plan of care is for N consult. Physician observation started at this time. MDM - Psych Differential Diagnosis Differential diagnosis: Likely acute anxiety and post-traumatic stress disorder Medical Records Attestation: I reviewed the patient's medical records. Discharge Plan Discharge Clinical Impression: Post traumatic stress disorder, Acute anxiety Prescriptions: No Action duloxetine 60 mg Capsule,Delayed Release(Dr/Ec) 120 mg PO BEDTIME RF: 0 albuterol sulfate [ProAir HFA] 90 mcg/actuation Hfa Aerosol Inhaler 2 puff INHALATION Q4H PRN (Reason: Shortness Of Breath) RF: 0 clonazepam [Klonopin] 0.5 mg Tablet 0.5 mg PO TID PRN (Reason: Anxiety) RF: 0 aripiprazole 10 mg Tablet 10 mg PO BEDTIME RF: 0 bupropion HCl [Wellbutrin XL] 300 mg tablet extended release 24 hr 300 mg PO QAM Qty: 30 RF: 0 amitriptyline 50 mg tablet 50 mg PO BEDTIME Qty: 14 RF: 0
--- NOTE | 2020-06-24 19:02 | PC.NURSE ---
Report received. PT is resting in bed. Calm and cooperative. PT is waiting to be seen for crisis.
[2020-06-24] MEDS: buPROPion HCl XL 300 MG TAB.ER.24H PO (20:18)
[2020-06-24] MEDS: ARIPiprazole 10 MG TABLET PO (20:38)
[2020-06-24] MEDS: Amitriptyline HCl 50 MG TABLET PO (20:39)
[2020-06-24] MEDS: DULoxetine HCl 60 MG CAPSULE.DR 120 MG PO (20:39)
[2020-06-24] MEDS: clonazePAM 0.5 MG TABLET PO (20:48)
[2020-06-25 00:15] VITALS: BP 114/76; PULSE 80; RESP 16; TEMP 36.3; O2SAT 92
--- NOTE | 2020-06-25 07:03 | PC.NURSE ---
Report recieved. PT currently sleeping, respirations even and unlabored, in no apparent distress. PT to be seen by Care Team
[2020-06-25] MEDS: buPROPion HCl XL 300 MG TAB.ER.24H PO (08:12)
[2020-06-25 08:25] VITALS: BP 113/74; PULSE 91; RESP 19; TEMP 35.9; O2SAT 94
[2020-06-25] MEDS: clonazePAM 0.5 MG TABLET PO ×2 (12:15→20:41)
[2020-06-25 16:33] VITALS: BP 121/80; PULSE 69; RESP 18; TEMP 36.4; O2SAT 97
[2020-06-25 16:47] LABS: MANUAL DIFF FLAG NO
[2020-06-25 16:51] LABS: Basophils Percent Auto 0.7 % (0-2); Eosinophils Absolute Auto 0.1 X10*3/uL (0.0-0.4); Eosinophils Percent Auto 1.6 % (0-4); Hematocrit 44.2 % (37-47); Hemoglobin 14.5 g/dl (12.0-16.0); Imm Gran Abs Auto 0.03 X10*3/uL (0.00-0.03); Imm Gran Pct Auto 0.5 % (0.0-0.4); Lymphocytes Absolute Auto 1.8 X10*3/uL (1.2-4.9); Lymphocytes Percent Auto 31.1 % (20-40); Mean Corpuscular HGB Conc 32.8 g/dl (31.0-35.0); Mean Corpuscular Hemoglobin 29.8 pg (27.0-33.0); Mean Corpuscular Volume 90.9 fL (80-98); Mean Platelet Volume 10.8 fL (9.4-12.3); Monocytes Absolute Auto 0.4 X10*3/uL (0.1-1.2); Monocytes Percent Auto 7.4 % (2-11); Neutrophils Absolute Auto 3.4 X10*3/uL (2.0-8.3); Neutrophils Percent Auto 58.7 % (45-73); Platelet Count 181 X10*3/uL (160-400); Red Blood Count 4.86 X10*6/uL (4.20-5.50); Red Cell Distribution Width 14.9 % (11.0-16.0); White Blood Count 5.8 X10*3/uL (4.8-10.8)
[2020-06-25 16:57] LABS: INTERNATIONAL NORM RATIO 0.9 (0.9-1.1); Prothrombin Time 10.7 SEC (10.8-13.0)
[2020-06-25 16:59] LABS: Partial Thromboplastin Time 32.7 SEC (24.1-38.0)
[2020-06-25 17:02] LABS: COVID-19 Test Negative (Negative); IDNOW Serial# 9DD0AD1C
[2020-06-25 17:13] LABS: Ethanol < 10 mg/dL
[2020-06-25 17:15] LABS: Alanine Aminotransferase 25 U/L (0-31); Albumin Level 3.8 g/dL (3.5-5.0); Alkaline Phosphatase 79 U/L (39-117); Anion Gap 14 (12-20); Aspartate Amino Transferase 17 U/L (5-31); Bilirubin Direct < 0.2 mg/dL (0.0-0.5); Bilirubin Total 0.2 mg/dL (0.0-1.0); Blood Urea Nitrogen 19 mg/dL (9-16); Calcium 9.5 mg/dL (8.4-10.2); Carbon Dioxide 26 mmol/L (22-29); Chloride 106 mmol/L (96-108); Creatinine Clr Calc Pharmacy 92.6; Estimated Glomerular Filt Rate > 60; Glucose Random 90 mg/dL (60-115); Potassium 4.2 mmol/L (3.3-5.1); Sodium 142 mmol/L (135-145); Total Protein 6.2 g/dL (6.5-8.0)
[2020-06-25 19:12] LABS: Glucose Urine UA NEG (NEG); Leukocyte Esterase Urine NEG (NEG); Nitrite Urine NEG (NEG); Specific Gravity - Urine >= 1.030 (1.005-1.025); Urine Blood NEG (NEG); Urine Ketones NEG (NEG); Urine Protein NEG (NEG-TRACE)
[2020-06-25 19:14] LABS: Appearance Urine CLEAR; Color Urine DARK YELLOW
[2020-06-25 19:15] LABS: UPreg QC Valid YES; Urine Pregnancy NEGATIVE (NEGATIVE)
--- NOTE | 2020-06-25 19:21 | PC.NURSE ---
Report received. PT is sitting in the room with her . Calm and cooperative. PT is inpatient bed search.
[2020-06-25 19:47] LABS: Amphetamine Screen Urine Not Detected (Not Detect); Barbiturates, Urine Not Detected (Not Detect); Benzodiazepines Screen Urine Not Detected (Not Detect); Cannabinoid Screen Urine POSITIVE (Not Detect); Cocaine Screen Urine Not Detected (Not Detect); Opiate Screen Urine Not Detected (Not Detect); Phencyclidine Screen Urine Not Detected (Not Detect)
[2020-06-25] MEDS: Amitriptyline HCl 50 MG TABLET PO (20:41)
[2020-06-25] MEDS: DULoxetine HCl 60 MG CAPSULE.DR 120 MG PO (20:41)
[2020-06-25] MEDS: ARIPiprazole 10 MG TABLET PO (20:42)
--- NOTE | 2020-06-25 23:45 | MHC.CARE ---
Addendum entered by Berta Carroll LCSW 06/25/20 23:54: Correction to information below: Partial Hospitalization Program declined pt who wanted to return for more treatment, with rationale that the pt required stabilization before she would be appropriate for the program. Original Note: Behavioral health/ED Nursing communication note-- CARE team completed Level of Care evaluation this morning (Sun 06/25). After consulting with the referring psychiatrist, Dr. Hoff, disposition was determined to be for a voluntary inpatient psychiatric admission. Pt recently completed an episode of treatment through [facility] Partial Hospitalization Program, and due to pt's ongoing impairment of her overall daily functioning it was indicated by the Partial Hospitalization Program that the pt requires inpatient psych stabilization due to the perceived acuity of pt's presentation. Pt was not agreeable to developing an alternative plan of care and discharging from the hospital, feeling that she is unable to tolerate being home due to her anxiety and PTSD symptoms. Pt has denied SI/HI/AVH since arrival to the ED. Pt will board in ED awaiting facility acceptance. Pt will be presented for possible admission to [facility] in the morning, as pt has stated that she will only accept admission to [facility].
[2020-06-26 05:02] VITALS: BP 131/87; PULSE 86; RESP 18; TEMP 36.4; O2SAT 93
--- NOTE | 2020-06-26 07:22 | PC.NURSE ---
Report received from DILAN Barragan. Pt awake, OOB to bathroom, no concerns reported.
[2020-06-26] MEDS: buPROPion HCl XL 300 MG TAB.ER.24H PO (08:40)
[2020-06-26 08:59] VITALS: BP 127/88; PULSE 101; RESP 19; TEMP 36.3; O2SAT 94
--- NOTE | 2020-06-26 12:20 | PC.NURSE ---
Rand visiting w/ family, affect even, no concerns reported at this time.
[2020-06-26] MEDS: clonazePAM 0.5 MG TABLET PO ×2 (13:40→21:58)
[2020-06-26 14:00] VITALS: RESP 18
--- NOTE | 2020-06-26 14:28 | PC.NURSE ---
Pt conversing w/ family- requested clonazepam for increasing anxiety. Pt tearful, reporting that she would like to go home but feels she needs to stay for treatment. Pt is aware that she is here voluntarily.
--- NOTE | 2020-06-26 15:40 | PC.NURSE ---
Pt resting, resp unlabored
[2020-06-26 16:08] VITALS: BP 112/76; PULSE 83; TEMP 36.5; O2SAT 94
--- NOTE | 2020-06-26 17:33 | PC.NURSE ---
Pt with family- reports she is feeling 'much better.' Stated that she had had some significant anxiety, 'flight or fight' feeling earlier but that since receiving clonazepam she is feeling better. Daughter in w/ pt at this time.
[2020-06-26] MEDS: Amitriptyline HCl 50 MG TABLET PO (20:48)
[2020-06-26] MEDS: ARIPiprazole 10 MG TABLET PO (20:48)
[2020-06-26] MEDS: DULoxetine HCl 60 MG CAPSULE.DR 120 MG PO (20:48)
[2020-06-27 02:08] VITALS: BP 120/80; PULSE 83; RESP 18; TEMP 36.3; O2SAT 94
--- NOTE | 2020-06-27 07:22 | PC.NURSE ---
Report received from DILAN Kohli. Pt awake, affect even, no concerns reported.
[2020-06-27] MEDS: buPROPion HCl XL 300 MG TAB.ER.24H PO (07:53)
[2020-06-27] MEDS: clonazePAM 0.5 MG TABLET PO ×3 (08:59→20:32)
[2020-06-27 11:12] VITALS: BP 130/86; PULSE 83; RESP 16; TEMP 36.5; O2SAT 94
--- NOTE | 2020-06-27 12:30 | PC.NURSE ---
Pt reports good effect from Clonazepam-had questions re: inpatient care, questions answered as asked.
--- NOTE | 2020-06-27 13:58 | PC.NURSE ---
Pt resting, resp unlabored, affect even, awaiting transfer to .
[2020-06-27 14:00] VITALS: RESP 18
--- NOTE | 2020-06-27 15:37 | MHC.CARE ---
Pt will be admitted to this evening.
[2020-06-27 15:40] VITALS: RESP 22
--- NOTE | 2020-06-27 15:49 | PC.NURSE ---
Report given to DILAN Duncan on [facility].
--- NOTE | 2020-06-27 16:09 | PC.NURSE ---
CARE in to transfer pt to [facility]. Pt alert, affect even, cooperative w/ transfer, no concerns reported.
--- NOTE | 2020-06-27 17:55 | PC.ADMIT ---
Pt arrived to unit at 1614, from ED with security and BHN present. Pt came to hospital from home voluntarily, reports she was having increased anxiety attacks, and is unable to sleep well without the use of Marijuana. Pt signed herself in under a conditional voluntary, at the recommendation of her provider. The patient present with increased anxiety symptoms and increased frequency of panic episodes. Pt reports anxiety is related to her work situation, in which she reports she works at [employer] and has had 7 patients from COVID over the last year, as well as a family member. The patient reports she is going to put in her notice to quit, and is experiencing increased anxiety. The patient is followed by Dr. Francisco Javier Salas while home. The pt reports she does not feel she can cope with current stressors and increased anxiety without added support. The patient is to be followed by Dr. Medina while inpatient. The patient has been been oriented to the unit. The patient contracts for safety, pt states she will comply with treatment team.
[2020-06-27] MEDS: DULoxetine HCl 60 MG CAPSULE.DR 120 MG PO (20:31)
[2020-06-27] MEDS: ARIPiprazole 10 MG TABLET PO (20:32)
[2020-06-27] MEDS: Amitriptyline HCl 50 MG TABLET PO (20:32)
[2020-06-28 06:00] VITALS: BP 125/72; PULSE 87; RESP 18; TEMP 36.3; O2SAT 94
[2020-06-28] MEDS: buPROPion HCl XL 300 MG TAB.ER.24H PO (08:39)
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
[2020-06-28 18:00] VITALS: BP 126/74; PULSE 82; TEMP 36.4; O2SAT 96
[2020-06-28] MEDS: DULoxetine HCl 60 MG CAPSULE.DR 120 MG PO (20:39)
[2020-06-28] MEDS: ARIPiprazole 10 MG TABLET PO (20:41)
[2020-06-28] MEDS: Amitriptyline HCl 50 MG TABLET PO (20:41)
[2020-06-28] MEDS: clonazePAM 0.5 MG TABLET PO (20:41)
[2020-06-28] MEDS: Magnesium Hydrox/Alum Hydrox 30 ML ORAL.SUSP PO (22:17)
[2020-06-29 06:00] VITALS: BP 108/74; PULSE 82; RESP 18; TEMP 36.1; O2SAT 95
[2020-06-29] MEDS: buPROPion HCl XL 300 MG TAB.ER.24H PO (09:11)
--- NOTE | 2020-06-29 10:47 | HO.PSYCHPN ---
Subjective Subjective Date of Service: 06/29/20 Reason For Visit: Depression Subjective Notes: Roe Warning and Conditional Voluntary Healthcare Proxy: No Guardianship: No Medical Problems Affecting Mental Status: No Interim History: The patient reported that she is feeling better, less anxious now that she has decided to quit her job as soon as she is discharged, she can't deal emotionally well by witnessing pain and suffer of patients and that triggers her panic attacks and dysphoria. I called her psychiatrist, Dr. Hoff and she provided a lot of more information regarding the management of her depression. So far, we will wait for Elavil level. Medication Compliance: Yes Side effects from medications: No Attending Groups: Yes Review of Systems Acute medical concerns: No Medical Review of Systems: unchanged Mental Status Exam Mental Status Exam Patient Appearance: Well Grooomed Patient Orientation: Person, Place, Time and Situation Level of Consciousness: Awake Patient Behavior: Appropriate Mood Description: Depressed Affect Description: Constricted Patient Cognition Impaired: No Ability to Follow Directions: Good Speech Pattern: Clear Memory Description: Intact Hallucinations: None Delusions: Not Present Thought Process: Goal Oriented Thought Content: positive for Circumstantial Depressive Symptoms: Increased Anxiety Judgement: Fair Diagnostics Vital Signs (24Hr): Vital Signs - 24 hr 06/28/20 18:00 06/29/20 06:00 Temperature 97.6 F 97 F Pulse Rate 82 82 Respiratory Rate 18 Blood Pressure 126/74 108/74 Pulse Oximetry 96 95 Body Mass Index 27.8 Labs Results: 06/25/20 16:34 06/25/20 16:34 Medications Medications Current Medications Generic Name Dose Route Start Last Admin Trade Name Freq PRN Reason Stop Dose Admin Al Hydroxide/Mg Hydroxide 30 ml 06/27/20 15:57 06/28/20 22:17 Magnesium Hydrox/Alum Hydrox 30 Ml Oral.Susp PO 30 ml Q6H PRN Administration Heartburn/Nausea Albuterol Sulfate 2 puff 06/24/20 19:20 Albuterol Sulfate 90 Mcg 8 Gm Inhaler INHALE Q4H PRN Shortness Of Breath Amitriptyline HCl 50 mg 06/24/20 21:00 06/28/20 20:41 Amitriptyline Hcl 50 Mg Tablet PO 50 mg BEDTIME STEPHON Administration Aripiprazole 10 mg 06/24/20 21:00 06/28/20 20:41 Aripiprazole 10 Mg Tablet PO 10 mg BEDTIME [facility] Administration Bupropion HCl 300 mg 06/24/20 19:30 06/29/20 09:11 Bupropion Hcl Xl 300 Mg Tab.Er.24h PO 300 mg DAILY [facility]PHON Administration Clonazepam 0.5 mg 06/24/20 19:20 06/28/20 20:41 Clonazepam 0.5 Mg Tablet PO 0.5 mg TID PRN Administration Anxiety Duloxetine HCl 120 mg 06/24/20 21:00 06/28/20 20:39 Duloxetine Hcl 60 Mg Capsule.Dr PO 120 mg BEDTIME STEPHON Administration Hydroxyzine HCl 25 mg 06/27/20 15:57 Hydroxyzine Hcl 25 Mg Tablet PO BEDTIME PRN Anxiety Magnesium Hydroxide 30 ml 06/27/20 15:57 Milk Of Magnesia 30 Ml Oral.Susp PO DAILY PRN Constipation Trazodone HCl 50 mg 06/27/20 15:57 Trazodone Hcl 50 Mg Tablet PO BEDTIME PRN Insomnia Allergies Allergies Allergy/AdvReac Type Severity Reaction Status Date / Time bee pollen [BEE STINGS] Allergy Severe PAIN AND Unverified 10/28/19 16:06 EDEMA PER PATIENT HX OF ANAPHYLAXIS acetaminophen [From PERCOCET] Allergy Intermediate Itching Unverified 10/28/19 16:06 latex [LATEX] Allergy Intermediate RASH Unverified 10/28/19 16:06 oxycodone [From PERCOCET] Allergy Intermediate Itching Unverified 10/28/19 16:06 Penicillins [PENICILLINS] Allergy Intermediate HIVES Unverified 10/28/19 16:06 Assessment & Plan Assessment & Plan (1) Major depressive disorder, recurrent episode with melancholic features: Status: Acute Code(s): F33.9 - Major depressive disorder, recurrent, unspecified Assessment and Plan: Continue with medications Get Elavil level Get more collateral (2) Acute anxiety: Status: Acute Code(s): F41.9 - Anxiety disorder, unspecified (3) Post traumatic stress disorder: Status: Acute Code(s): F43.10 - Post-traumatic stress disorder, unspecified Greater than 50% of the session was spent on counseling and/or coordination of care Reason for contiued inpatient stay Substantial Risk for: inability to function, rapid decompensation and med/psych decompensation
[2020-06-29 14:07] VITALS: BMI 27.8
--- NOTE | 2020-06-29 14:23 | PM.PSYDC ---
DS: Providers Provider Date of Service: 06/29/20 Date of admission: 06/27/20 15:57 Date of discharge: 06/29/20 Primary care physician: Jessie Zamora NP Attending physician on discharge: Miles Palma DS: Diagnosis Discharge Diagnosis (1) Major depressive disorder, recurrent episode with melancholic features: Status: Acute (2) Acute anxiety: Status: Acute (3) Post traumatic stress disorder: Status: Acute DS: Medications Discharge Medications Home Medications: Home Medications Medication Instructions Recorded Confirmed albuterol sulfate [ProAir HFA] 2 puff INHALATION Q4H PRN 12/10/19 06/24/20 duloxetine 120 mg PO BEDTIME 12/10/19 06/24/20 aripiprazole 10 mg PO BEDTIME 05/09/20 06/24/20 clonazepam [Klonopin] 0.5 mg PO TID PRN 05/09/20 06/24/20 Previous Rx's Medication Instructions Recorded bupropion HCl [Wellbutrin XL] 300 mg PO QAM #30 tab 05/09/20 amitriptyline 50 mg PO BEDTIME #14 tab 05/23/20 amitriptyline 50 mg PO BEDTIME 30 Days #30 tab 06/29/20 aripiprazole 10 mg PO BEDTIME 30 Days #30 tab 06/29/20 bupropion HCl 300 mg PO DAILY 30 Days #30 tab 06/29/20 clonazepam 0.5 mg PO TID PRN 30 Days tab 06/29/20 duloxetine 120 mg PO BEDTIME 30 Days #60 cap 06/29/20 Discharge Plan Discharge Patient Disposition: Home, Self-Care Discharge Diagnosis: Major Depressive Disorder Referrals: [facility] Intake [Other] - 07/03/20 7:30 am (Program is virtual. You will start the program directly following your intake appointment) Maci Peraza (therapist) [Other] (Follow up for appointment) Megan Hoff [Other] (Follow up for appointment) Jessie Zamora NP [Primary Care Provider] - 1 Week (in office) Discharge Medications: New clonazepam 0.5 mg Tablet 0.5 mg PO TID PRN (Reason: Anxiety) 30 Days RF: 0 amitriptyline 50 mg Tablet 50 mg PO BEDTIME 30 Days Qty: 30 RF: 0 aripiprazole 10 mg Tablet 10 mg PO BEDTIME 30 Days Qty: 30 RF: 0 bupropion HCl 300 mg Tablet Extended Release 24 Hr 300 mg PO DAILY 30 Days Qty: 30 RF: 0 duloxetine 60 mg Capsule,Delayed Release(Dr/Ec) 120 mg PO BEDTIME 30 Days Qty: 60 RF: 0 albuterol sulfate [Ventolin HFA] 90 mcg/actuation Hfa Aerosol Inhaler 2 puff inhalation Q4H PRN (Reason: Shortness Of Breath) 14 Days RF: 0 Continued duloxetine 60 mg Capsule,Delayed Release(Dr/Ec) 120 mg PO BEDTIME RF: 0 albuterol sulfate [ProAir HFA] 90 mcg/actuation Hfa Aerosol Inhaler 2 puff INHALATION Q4H PRN (Reason: Shortness Of Breath) RF: 0 clonazepam [Klonopin] 0.5 mg Tablet 0.5 mg PO TID PRN (Reason: Anxiety) RF: 0 aripiprazole 10 mg Tablet 10 mg PO BEDTIME RF: 0 bupropion HCl [Wellbutrin XL] 300 mg tablet extended release 24 hr 300 mg PO QAM Qty: 30 RF: 0 amitriptyline 50 mg tablet 50 mg PO BEDTIME Qty: 14 RF: 0 Discharge Orders: Discharge Order (Routine); Ordered 06/29/20 Ordered By: Miles Palma Activity on Discharge: As tolerated Stand Alone Forms: Patient Portal Discharge page Care Plan Goals: Continue Care Plan as an outpatient, evaluate the possiblity of PHP. Health Concerns: Stable, continue treatment with PCP. Plan of Treatment: As per outpatient providers. Assessment: Middle age female with MDD, PTSD and severe anxiety, admitted for exacerbation of anxiety that impaired her to function. Mental Status Exam Mental Status Exam Patient Appearance: Well Grooomed Patient Orientation: Person, Place, Time and Situation Level of Consciousness: Awake and Appropriate Patient Behavior: Appropriate Mood Description: Calm Affect Description: Withdrawn Patient Cognition Impaired: No Ability to Follow Directions: Good Speech Pattern: Clear Memory Description: Intact Hallucinations: None Delusions: Not Present Thought Process: Goal Oriented Thought Content: positive for Intact Judgement: Fair Data Data Completed and Pending Completed studies during hospitalization [Text1]: 06/25/20 06/25/20 06/25/20 16:34 16:34 16:34 WBC 5.8 RBC 4.86 Hgb 14.5 Hct 44.2 MCV 90.9 MCH 29.8 MCHC 32.8 RDW 14.9 Plt Count 181 MPV 10.8 Immature Gran % (Auto) 0.5 H Neut % (Auto) 58.7 Lymph % (Auto) 31.1 [place] % (Auto) 7.4 Eos % (Auto) 1.6 Baso % (Auto) 0.7 Lymph # (Auto) 1.8 [place] # (Auto) 0.4 Eos # (Auto) 0.1 Baso # (Auto) 0.0 Abs Immat Gran (auto) 0.03 Absolute Neuts (auto) 3.4 Absolute Nucleated RBC 0.000 Nucleated RBC % (auto) 0.0 PT 10.7 L INR 0.9 APTT 32.7 Sodium 142 Potassium 4.2 Chloride 106 Carbon Dioxide 26 Anion Gap 14 BUN 19 H D Creatinine 0.74 Estim Creat Clear Calc 92.6 Estimated GFR > 60 Random Glucose 90 Calcium 9.5 D Total Bilirubin 0.2 Direct Bilirubin < 0.2 AST 17 ALT 25 Alkaline Phosphatase 79 Total Protein 6.2 L Albumin 3.8 Urine Color Urine Appearance Urine pH Ur Specific [place] Urine Protein Urine Glucose (UA) Urine Ketones Urine Blood Urine Nitrite Ur Leukocyte Esterase Urine Test Urine Opiates Screen Ur Barbiturates Screen Amitriptyline Amitriptyline&Nortrip Nortriptyline Ur Phencyclidine Scrn Ur Amphetamines Screen U Benzodiazepines Scrn Urine Cocaine Screen U Marijuana (THC) Screen Ethyl Alcohol COVID-19 ([facility]) COVID-19 Clin Com 06/25/20 06/25/20 06/25/20 16:34 16:34 18:58 WBC RBC Hgb Hct MCV MCH MCHC RDW Plt Count MPV Immature Gran % (Auto) Neut % (Auto) Lymph % (Auto) [place] % (Auto) Eos % (Auto) Baso % (Auto) Lymph # (Auto) [place] # (Auto) Eos # (Auto) Baso # (Auto) Abs Immat Gran (auto) Absolute Neuts (auto) Absolute Nucleated RBC Nucleated RBC % (auto) PT INR APTT Sodium Potassium Chloride Carbon Dioxide Anion Gap BUN Creatinine Estim Creat Clear Calc Estimated GFR Random Glucose Calcium Total Bilirubin Direct Bilirubin AST ALT Alkaline Phosphatase Total Protein Albumin Urine Color DARK YELLOW Urine Appearance CLEAR Urine pH 6.0 Ur Specific [place] >= 1.030 H Urine Protein NEG Urine Glucose (UA) NEG Urine Ketones NEG Urine Blood NEG Urine Nitrite NEG Ur Leukocyte Esterase NEG Urine Test Urine Opiates Screen Ur Barbiturates Screen Amitriptyline Amitriptyline&Nortrip Nortriptyline Ur Phencyclidine Scrn Ur Amphetamines Screen U Benzodiazepines Scrn Urine Cocaine Screen U Marijuana (THC) Screen Ethyl Alcohol < 10 COVID-19 ([facility]) Negative COVID-19 Clin Com See Note 06/25/20 06/25/20 06/28/20 18:58 18:58 12:20 WBC RBC Hgb Hct MCV MCH MCHC RDW Plt Count MPV Immature Gran % (Auto) Neut % (Auto) Lymph % (Auto) [place] % (Auto) Eos % (Auto) Baso % (Auto) Lymph # (Auto) [place] # (Auto) Eos # (Auto) Baso # (Auto) Abs Immat Gran (auto) Absolute Neuts (auto) Absolute Nucleated RBC Nucleated RBC % (auto) PT INR APTT Sodium Potassium Chloride Carbon Dioxide Anion Gap BUN Creatinine Estim Creat Clear Calc Estimated GFR Random Glucose Calcium Total Bilirubin Direct Bilirubin AST ALT Alkaline Phosphatase Total Protein Albumin Urine Color Urine Appearance Urine pH Ur Specific [place] Urine Protein Urine Glucose (UA) Urine Ketones Urine Blood Urine Nitrite Ur Leukocyte Esterase Urine Test NEGATIVE Urine Opiates Screen Not Detected Ur Barbiturates Screen Not Detected Amitriptyline Pending Amitriptyline&Nortrip Pending Nortriptyline Pending Ur Phencyclidine Scrn Not Detected Ur Amphetamines Screen Not Detected U Benzodiazepines Scrn Not Detected Urine Cocaine Screen Not Detected U Marijuana (THC) Screen POSITIVE H Ethyl Alcohol COVID-19 ([facility]) COVID-19 Clin Com DS: Summary Hospital Course Hospital Course: The patient was admitted from the ED since she was initially overwhelmed with anxiety that didn't allow her to work or function. Since she was unable to function and required constant reassurance, inpatient level of care was offered and she was admitted in a conditional voluntary. The patient participated on groups, she was able to sleep well and her mood improved. We contacted her primary psychiatrist and discussed the case. I ordered an Elavil level to see if we could increase it eventually. Since there were no safety concerns, discharge planning was discussed. Time spent discussing smoking cessation with patient: 3 to 10 minutes Status at Discharge Cognitive/behavioral status at discharge: Cognition intact Functional status at discharge: independent ambulation Overall status at discharge: patient is back to baseline Time Spent with Patient Time attestation: Total time spent providing and/or coordinating discharge services: Time spent: Less than 30 minutes
[2020-07-02 09:56] LABS: Amitriptyline, Serum 20 mcg/L; Nortriptyline, Serum 31 mcg/L; Total (Ami+Nor) 51 mcg/L (100-250)
== END 2020-06-29 16:05 | disposition home or self-care (01) | DRG 885 ==
LOC: HO.ED 06-26 03:05 → HO.PM5 06-27 16:04
PROVIDERS: Physician Assistant; Admitting Provider Psychiatry & Neurology Psychiatry; Emergency Provider Emergency Medicine; PCP Nurse Practitioner Family; Visit Provider Psychiatry & Neurology Psychiatry
DX: F33.9 Major depressive disorder, recurrent, unspecified (principal); F43.10 Post-traumatic stress disorder, unspecified; F41.9 Anxiety disorder, unspecified; Z20.822 Contact with and (suspected) exposure to COVID-19; Z88.0 Allergy status to penicillin; Z88.5 Allergy status to narcotic agent; Z79.899 Other long term (current) drug therapy
CPT/HCPCS: 36415; 80053; 80076; 80307; 80320; 80335; 81003; 81025; 82248; 85025; 85610; 85730; 87635; 99285

== ENCOUNTER 2020-07-20 09:00 | Outpatient (RCR) | payer OTHER, SELFPAY ==
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
[2020-07-04 13:49] VITALS: BMI 27.8
--- NOTE | 2020-07-04 14:03 | PC.ADMIT ---
Patient was referred to PHP by [facility] where patient was admitted for increased depression, anxiety, and PTSD sxs on 06/27/20 to 06/29/20. Patient feeling overwhelmed with family issues and work related issues. Reports trauma history. Patient is alert and oriented x4. Calm and cooperative. Presents with depressed mood anxious affect. Denied SI. Patient gave verbal permission to email her a copy of her safety plan. Patient's medications reconciled with patient and [facility] d/c medication list. Patient reports taking medications as prescribed.
--- NOTE | 2020-07-14 17:41 | HO.PHPPROGNO ---
Subjective Subjective Date of Service: 07/14/20 Reason For Visit: Major Depression, Anxiety, Panic Interim History: Patient reports overall she is doing well with current medications. Denies any issues with current aripiprazole dose of 20mg at bedtime, states it is working well. No other concerns at this time. Medication Compliance: Yes Side effects from medications: No Attending Groups: Yes Review of Systems Acute medical concerns: No Medical Review of Systems: unchanged Mental Status Exam Mental Status Exam Patient Appearance: Well Grooomed Patient Orientation: Person, Place, Time and Situation Level of Consciousness: Awake and Appropriate Patient Behavior: Appropriate and Cooperative Mood Description: Appropriate Affect Description: Appropriate Patient Cognition Impaired: No Ability to Follow Directions: Excellent Speech Pattern: Clear Memory Description: Intact Hallucinations: None Delusions: Not Present Thought Process: Intact Thought Content: positive for Intact Judgement: Good Diagnostics Vital Signs (24Hr): Body Mass Index 27.8 Assessment & Plan Certification Patient reports current medications and doses are working. States doing well with increased ariprazole dose that had happened recently, feels it is effective. States does not need any refills sent to pharmacy at this time. Plan to follow-up next week. I certify that partial hospital treatment is medically necessary due to the symptoms and problems resulting from the patient's mental illness and the failure to treat the patient at the partial hospital level of care would likely result in the patient requiring inpatient psychiatric care which could not be prevented at a less intensive level of care. Greater than 50% of the session was spent on counseling and/or coordination of care Discharge Plan Discharge Attending provider: Miles Palma Medications: No Action aripiprazole 20 mg Tablet 20 mg PO BEDTIME RF: 0 clonazepam 0.5 mg Tablet 0.5 mg PO TID PRN (Reason: Anxiety) 30 Days RF: 0 amitriptyline 50 mg Tablet 50 mg PO BEDTIME 30 Days Qty: 30 RF: 0 albuterol sulfate [Ventolin HFA] 90 mcg/actuation Hfa Aerosol Inhaler 2 puff inhalation Q4H PRN (Reason: Shortness Of Breath) 14 Days RF: 0 bupropion HCl 300 mg Tablet Extended Release 24 Hr 300 mg PO DAILY 30 Days Qty: 30 RF: 0 duloxetine 60 mg Capsule,Delayed Release(Dr/Ec) 120 mg PO BEDTIME 30 Days Qty: 60 RF: 0 Stand Alone Forms: Patient Portal Discharge page Telehealth Telehealth Location of provider rendering services: practice address Location of patient: address on file Patient Identification confirmed using: Name, : Yes Telehealth method: video Patient verbally consented to treatment: Yes Patient verbally consented to billing insurance company: Yes Patient informed of any privacy concerns related to visit: Yes Time spent with patient (mins): 15
--- NOTE | 2020-07-17 16:09 | PC.NURSE ---
I called [facility] in [place] ([phone]) and received a message that the number no longer is in service. I then called and left a message at the [place] number ([phone]) and asked for a call back to place a referral. I then called the main number listed on the website ([phone]) and was told to call the [place] number that I already called. I tried [place] again, and the number was still not in service. I then called pt and gave her the [place] number just in case they don't call me back, as they haven't in the recent past.
--- NOTE | 2020-07-19 12:50 | HO.PHPPROGNO ---
Subjective Subjective Date of Service: 07/19/20 Reason For Visit: Major Depression, Anxiety, Panic Interim History: The patient reported improvement of her depressive symptoms. She felt that [facility] has helped her a lot. Content with the current treatment. Medication Compliance: Yes Side effects from medications: No Attending Groups: Yes Review of Systems Acute medical concerns: No Medical Review of Systems: unchanged Mental Status Exam Mental Status Exam Patient Appearance: Well Grooomed Patient Orientation: Person, Place, Time and Situation Level of Consciousness: Awake and Appropriate Patient Behavior: Cooperative Mood Description: Calm Affect Description: Calm (brighter affect) Patient Cognition Impaired: No Ability to Follow Directions: Good Speech Pattern: Clear Memory Description: Intact Hallucinations: None Delusions: Not Present Thought Process: Goal Oriented Thought Content: positive for Intact (denies suicidal or homicidal thoughts.) Judgement: Good Diagnostics Vital Signs (24Hr): Body Mass Index 27.8 Assessment & Plan Assessment & Plan (1) Major depressive disorder, recurrent episode with melancholic features: Status: Acute Code(s): F33.9 - Major depressive disorder, recurrent, unspecified Assessment and Plan: Adult female with MDD, PTSD and anxiety, referred from inpatient to [facility] for continuation of care. Currently, she is doing very well, content with the treatment. Plan: Keep same treatment. F/U with her regular prescriber. (2) Post traumatic stress disorder: Status: Acute Code(s): F43.10 - Post-traumatic stress disorder, unspecified (3) Acute anxiety: Status: Acute Code(s): F41.9 - Anxiety disorder, unspecified Certification I certify that partial hospital treatment is medically necessary due to the symptoms and problems resulting from the patient's mental illness and the failure to treat the patient at the partial hospital level of care would likely result in the patient requiring inpatient psychiatric care which could not be prevented at a less intensive level of care. Greater than 50% of the session was spent on counseling and/or coordination of care Discharge Plan Discharge Attending provider: Miles Palma Medications: No Action aripiprazole 20 mg Tablet 20 mg PO BEDTIME RF: 0 clonazepam 0.5 mg Tablet 0.5 mg PO TID PRN (Reason: Anxiety) 30 Days RF: 0 amitriptyline 50 mg Tablet 50 mg PO BEDTIME 30 Days Qty: 30 RF: 0 albuterol sulfate [Ventolin HFA] 90 mcg/actuation Hfa Aerosol Inhaler 2 puff inhalation Q4H PRN (Reason: Shortness Of Breath) 14 Days RF: 0 bupropion HCl 300 mg Tablet Extended Release 24 Hr 300 mg PO DAILY 30 Days Qty: 30 RF: 0 duloxetine 60 mg Capsule,Delayed Release(Dr/Ec) 120 mg PO BEDTIME 30 Days Qty: 60 RF: 0 Stand Alone Forms: Patient Portal Discharge page Telehealth Telehealth Location of provider rendering services: practice address Location of patient: address on file Patient Identification confirmed using: Name, : Yes Telehealth method: video Patient verbally consented to treatment: Yes Patient verbally consented to billing insurance company: Yes Patient informed of any privacy concerns related to visit: No Time spent with patient (mins): 15
--- NOTE | 2020-07-20 16:08 | PC.NURSE ---
I called and left a message for pt's therapsit, Maci Peraza at [facility]. I let her know of pt's successful discharge from [facility] today.
== END 2020-07-21 08:18 | disposition home or self-care (01) ==
LOC: HO.PHPA 09:00
PROVIDERS: Visit Provider Psychiatry & Neurology Psychiatry
DX: F41.9 Anxiety disorder, unspecified (principal); F43.10 Post-traumatic stress disorder, unspecified; F33.9 Major depressive disorder, recurrent, unspecified; Z79.899 Other long term (current) drug therapy
CPT/HCPCS: 90791; 90853; 99212

== ENCOUNTER 2021-01-29 14:05 | Outpatient (REF) | payer OTHER, SELFPAY | END 2021-01-29 14:06 | disposition home or self-care (01) | LOC: HO.LAB 14:05 | PROVIDERS: Visit Provider Internal Medicine | DX: Z20.822 Contact with and (suspected) exposure to COVID-19 (principal) | CPT/HCPCS: C9803; U0003; U0005 ==

== ENCOUNTER 2021-02-01 09:00 | Outpatient (REF) | payer OTHER, SELFPAY ==
[2021-02-01 10:47] LABS: COVID-19 Test Negative (Negative)
== END 2021-02-01 09:01 | disposition home or self-care (01) ==
LOC: HO.LAB 09:00
PROVIDERS: Visit Provider Internal Medicine
DX: Z20.822 Contact with and (suspected) exposure to COVID-19 (principal)
CPT/HCPCS: 36415; 87635; C9803

== ENCOUNTER 2021-02-08 08:56 | Outpatient (REF) | payer OTHER, SELFPAY ==
[2021-02-08 09:29] LABS: COVID-19 Test Negative (Negative)
== END 2021-02-08 08:57 | disposition home or self-care (01) ==
LOC: HO.LAB 08:56
PROVIDERS: Visit Provider Internal Medicine
DX: Z20.822 Contact with and (suspected) exposure to COVID-19 (principal)
CPT/HCPCS: 36415; 87635; C9803